=== PATIENT | female | born 1960 | race Caucasian/White ===

== ENCOUNTER 2019-06-04 11:27 | Emergency (ER) | payer BC ==
--- NOTE | 2019-06-04 11:52 | EDM.PDOC ---
ED HPI GENERAL MEDICAL PROBLEM - General Chief Complaint: Genitourinary Problem Stated Complaint: UTI Time Seen by Provider: 06/04/19 11:40 Source of Information: Reports: Patient History Limitations: Reports: No Limitations - History of Present Illness INITIAL COMMENTS - FREE TEXT/NARRATIVE: Patient presents to ER with complaints of questionable UTI. States has difficulty emptying bladder which is common for her when has infection. Denies burning, hematuria. Has mild suprapubic discomfort. Does admit to frequency with urination. No fevers, back pain, nausea or vomiting. Onset: Gradual Duration: Day(s): Location: Reports: Abdomen Quality: Reports: Ache Severity: Mild Associated Symptoms: Denies: Confusion, Fever/Chills, Loss of Appetite, Nausea/ Vomiting, Shortness of Breath - Related Data Allergies Allergy/AdvReac Type Severity Reaction Status Date / Time Penicillins Allergy Hives Verified 06/04/19 11:46 Home Meds: Home Meds Escitalopram Oxalate [Lexapro] 5 mg PO DAILY 06/04/19 [History] Methylphenidate HCl [Methylphenidate ER] 06/04/19 [History] Past Medical History Psychiatric History: Reports: Depression Social & Family History - Tobacco Use Smoking Status *Q: Unknown Ever Smoked ED ROS GENERAL - Review of Systems Review Of Systems: See Below Constitutional: Denies: Fever, Chills, Malaise, Weakness HEENT: Reports: No Symptoms Respiratory: Reports: No Symptoms Cardiovascular: Reports: No Symptoms Endocrine: Reports: No Symptoms GI/Abdominal: Reports: No Symptoms : Reports: Frequency, Urinary Retention Musculoskeletal: Reports: No Symptoms Skin: Reports: No Symptoms ED EXAM, RENAL/ - Physical Exam Exam: See Below Exam Limited By: No Limitations General Appearance: Alert, WD/WN, No Apparent Distress Neck: Normal Inspection, Supple, Non-Tender Respiratory/Chest: No Respiratory Distress, Lungs Clear, Normal Breath Sounds Cardiovascular: Regular Rate, Rhythm GI/Abdominal: Normal Bowel Sounds, Soft, Non-Tender Back Exam: No: CVA Tenderness (L), CVA Tenderness (R) Extremities: Normal Inspection, No Pedal Edema Neurological: Alert, Oriented Skin Exam: Warm, Dry Course - Vital Signs Last Recorded V/S: Last Vital Signs Temp 97.6 F 06/04/19 11:43 Pulse 66 06/04/19 11:43 Resp 14 06/04/19 11:43 BP 129/77 06/04/19 11:43 Pulse Ox 97 06/04/19 11:43 - Orders/Labs/Meds Orders: Active Orders 24 hr Category Date Time Status UA W/MICROSCOPIC [URIN] Routine Lab 06/04/19 11:35 Ordered Labs: Laboratory Tests 06/04/19 Range/Units 11:41 Urine Color Light yellow (YELLOW) Urine Appearance Clear (CLEAR) Urine pH 6.5 (5.0-8.0) Ur Specific [place] 1.010 Urine Protein Negative (NEGATIVE) mg/dL Urine Glucose (UA) Negative (NEGATIVE) mg/dL Urine Ketones Negative (NEGATIVE) mg/dL Urine Occult Blood Moderate H (NEGATIVE) Urine Nitrite Negative (NEGATIVE) Urine Bilirubin Negative (NEGATIVE) Urine Urobilinogen 0.2 (0.2) EU/dL Ur Leukocyte Esterase Small H (NEGATIVE) - Re-Assessments/Exams Free Text/Narrative Re-Assessment/Exam: 06/04/19 11:56 UA positive. Advised patient Departure - Departure Time of Disposition: 11:56 Disposition: Home, Self-Care 01 Condition: Good Clinical Impression: UTI, Urinary tract infectious disease - Discharge Information *PRESCRIPTION DRUG MONITORING PROGRAM REVIEWED*: No *COPY OF PRESCRIPTION DRUG MONITORING REPORT IN PATIENT FATUMA: No Forms: ED Department Discharge Additional Instructions: 1. Push fluids 2. Tylenol or ibuprofen for discomfort. Could take AZO for bladder spasms if needed 3. Bactrim DS one twice a day for 5 days 4. Follow up with primary care provider if persisting concerns. Sepsis Event Note - Evaluation Sepsis Screening Result: No Definite Risk - Focused Exam Vital Signs: Vital Signs Temp Pulse Resp BP Pulse Ox 06/04/19 11:43 97.6 F 66 14 129/77 97 Date Exam was Performed: 06/04/19 Time Exam was Performed: 11:47 - My Orders Last 24 Hours: My Active Orders 06/04/19 11:35 UA W/MICROSCOPIC [URIN] Routine - Assessment/Plan Last 24 Hours: My Active Orders 06/04/19 11:35 UA W/MICROSCOPIC [URIN] Routine
[2019-06-04] MEDS ORDERED: Take Home: Sulfamethoxazole/Trimethoprim 800-160 MG Tab, 2 Tab Pack PO ONE (11:54)
== END 2019-06-04 12:05 | disposition home or self-care (01) ==
LOC: VM.ED 11:27
DX: N39.0 Urinary tract infection, site not specified (principal); F32.9 Major depressive disorder, single episode, unspecified; Z79.899 Other long term (current) drug therapy; Z88.0 Allergy status to penicillin
CPT/HCPCS: 81001; 99283; A9270-GY